=== PATIENT | male | born 1995 | race Two or more races ===

== ENCOUNTER 2018-06-01 15:32 | Emergency (ER) | payer OTHER ==
[2018-06-01 15:50] VITALS: BP 114/75
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
== END 2018-06-01 17:52 | disposition home or self-care (01) ==
LOC: ER 15:32
DX: F07.81 Postconcussional syndrome (principal); S09.93XA Unspecified injury of face, initial encounter; R42 Dizziness and giddiness; R11.2 Nausea with vomiting, unspecified; M54.2 Cervicalgia; M54.9 Dorsalgia, unspecified; Y04.0XXA Assault by unarmed brawl or fight, initial encounter; F17.200 Nicotine dependence, unspecified, uncomplicated
CPT/HCPCS: 70450; 70486; 72110; 72125; 99284